=== PATIENT | female | born 1950 | race Hispanic/Latino ===

== ENCOUNTER → 2017-08-13 | Outpatient (CLI) | payer MEDICARE, BC ==
[~2017-08-13] MED LIST: BENZONATATE; IOPAMIDOL 370 MG/ML 200 ML INFUS..BTL INJ ONE; LIOTHYRONINE; SODIUM CHLORIDE 0.9% 50ML 50 ML ONE; SYNTHROID88 MCG PO
[2017-08-13 17:56] LABS: BLOOD UREA NITROGEN 21 mg/dL (7-26); BUN/CREATININE RATIO 27 (6-25); CREATININE, SERUM 0.77 mg/dL (0.57-1.11); EST GLOMERULAR FILTRATION RATE > 60 ML/MIN (60-)
--- NOTE | 2017-08-14 09:36 | Diagnostic Imaging Report ---
EXAMINATION: CT scan of the chest with contrast. TECHNIQUE: Spiral CT images of the chest were performed from the lung apices to the level of the adrenal glands after the intravenous administration of 100 cc of Isovue 370. Coronal and sagittal reformatted images were obtained. COMPARISON: CT chest 09/13/2008 CLINICAL HISTORY:Status post fall, pain on right side of chest and ribs DISCUSSION: ABSENCE OF INTRAVENOUS CONTRAST DECREASES SENSITIVITY FOR DETECTION OF FOCAL LESIONS AND VASCULAR PATHOLOGY. LINES/TUBES: None. LUNGS AND AIRWAYS: Mild bilateral lower lobe dependent atelectasis. No consolidation, masses or pulmonary nodules. Airways are clear, without underlying lesions. PLEURA: No pneumothorax or pleural effusions. HEART AND MEDIASTINUM: The visualized thyroid is unremarkable. Heart size is normal. No pericardial effusion. Aorta is nonaneurysmal. Main pulmonary artery is normal in caliber. LYMPH NODES: There is no mediastinal, hilar or axillary lymphadenopathy. ABDOMEN: Limited contrast-enhanced views of the upper abdomen show no abnormality within the visualized spleen or pancreas. Decreased attenuation of the hepatic parenchyma compared to the spleen, consistent with steatosis. No focal lesions. 1.7 x 1.5 x 1.9 cm simple cyst in the superior pole of the left kidney. The adrenal glands are unremarkable. BONES AND SOFT TISSUES: No acute, displaced fracture or dislocation. No lytic or blastic lesions. Soft tissues are grossly unremarkable. IMPRESSION: 1. No acute, displaced fracture or dislocation. 2. Mild bilateral lower lobe dependent atelectasis. Otherwise the lungs are grossly clear. 3. Hepatic steatosis. Signed by: Dr. Tyler Carbajal M.D. on 08/14/2017 9:32 AM
== END ==
LOC: CT 16:17
PROVIDERS: ATTEND Family Medicine
DX: R07.89 Other chest pain (principal)
CPT/HCPCS: 36415; 71260; 82565; 84520; Q9967

== ENCOUNTER 2017-10-05 13:33 | Inpatient (IN) | payer MEDICARE, BC ==
[~2017-10-05] VITALS: Ht 152.4 cm; Wt 58.5 kg
[~2017-10-05 13:33] MED LIST changes: -IOPAMIDOL 370 MG/ML 200 ML INFUS..BTL INJ ONE; -SODIUM CHLORIDE 0.9% 50ML 50 ML ONE
--- OUTSIDE RECORDS SUMMARY | 2017-10-05 13:36 | XMS REPORT ---
Author Author [facility] Address Unknown Phone Unavailable Care Team Providers Care Remote Ruby On Rails Developer Name Role Phone MEGHNA STAHL Unavailable Unavailable Problems This patient has no known problems. Allergies, Adverse Reactions, Alerts This patient has no known allergies or adverse reactions. Medications This patient has no known medications. Results Test Description Test Time Test Comments Text Results Atomic Results Result Comments CT CHEST W [place] [address] Patient Name: CHANTAL VASQUEZ MR #: [id number] : 1950 Age/Sex: 67/F Req # : [id number] Adm Physician: Ordered by: MEGHNA STAHL MD Report #: [id number] Location: CT Room/Bed: Procedure: [id number] CT/CT CHEST W Exam Date: 08/13/17 Exam Time: 1834 REPORT STATUS: Signed EXAMINATION: CT scan of the chest with contrast. TECHNIQUE: Spiral CT images of the chest were performed from the lung apices to the level of the adrenal glands after the intravenous administration of 100 cc of Isovue 370. Coronal and sagittal reformatted images were obtained. COMPARISON: CT chest 09/13/2008 CLINICAL HISTORY: Status post fall, pain on right side of chest and ribs DISCUSSION: ABSENCE OF INTRAVENOUS CONTRAST DECREASES SENSITIVITY FOR DETECTION OF FOCAL LESIONS AND VASCULAR PATHOLOGY. LINES/TUBES: None. LUNGS AND AIRWAYS : Mild bilateral lower lobe dependent atelectasis. No consolidation, masses or pulmonary nodules. Airways are clear, without underlying lesions. PLEURA: No pneumothorax or pleural effusions. HEART AND MEDIASTINUM: The visualized thyroid is unremarkable. Heart size is normal. No pericardial effusion. Aorta is nonaneurysmal. Main pulmonary artery is normal in caliber. LYMPH NODES: There is no mediastinal, hilar or axillary lymphadenopathy. ABDOMEN: Limited contrast-enhanced views of the upper abdomen show no abnormality within the visualized spleen or pancreas. Decreased attenuation of the hepatic parenchyma compared to the spleen, consistent with steatosis. No focal lesions. 1.7 x 1.5 x 1.9 cm simple cyst in the superior pole of the left kidney. The adrenal glands are unremarkable. BONES AND SOFT TISSUES : No acute, displaced fracture or dislocation. No lytic or blastic lesions. Soft tissues are grossly unremarkable. IMPRESSION: 1. No acute, displaced fracture or dislocation. 2. Mild bilateral lower lobe dependent atelectasis. Otherwise the lungs are grossly clear. 3. Hepatic steatosis. Signed by: Dr. Lynsey Carbajal M.D. on 08/14/2017 9:32 AM Dictated By: LYNSEY CARBAJAL MD 1 Transcribed By: DARRYN on 08/14/17931 COPY TO: MEGHNA STAHL MD
--- OUTSIDE RECORDS SUMMARY | 2017-10-05 13:36 | XMS REPORT | Clinical Summary ---
Author Author [facility] Address Unknown Phone Unavailable Care Team Providers Care Vibration Analyst Name Role Phone Asked, Pcp PCP Unavailable Allergies Active Allergy Reactions Severity Noted Date Comments Penicillins Hives 09/15/2016 Promethazine Other (See Comments) 09/15/2016 Feels electric shocks Sulfa (Sulfonamide Anaphylaxis High 09/15/2016 Antibiotics) Acetaminophen Other (See Comments) 09/15/2016 Feels electric schoks Current Medications Prescription Sig. Disp. Refills Start End Date Status Date SYNTHROID 88 mcg tablet 0 08/06/19 Active 17 Active Problems No known active problems Social History Tobacco Use Types Packs/Day Years Used Date Never Smoker Alcohol Use Drinks/Week oz/Week Comments No Sex Assigned at Date Recorded Not on file Last Filed Vital Signs Not on file Plan of Treatment Health Maintenance Due Date Last Done Comments COLONOSCOPY 2001 MAMMOGRAM 2001 SHINGRIX VACCINE (#1) 2001 ZOSTER VACCINE 2011 PNEUMOCOCCAL 01/09/2016 POLYSACCHARIDE VACCINE AGE 65 AND OVER PNEUMOCOCCAL-13 01/09/2016 INFLUENZA VACCINE 12/22/2017 Results Not on fileafter 10/04/2016 Insurance Payer Benefit Subscriber ID Type Phone Address Plan / Group BCBS BCBS xxxxxxxxxxxx PPO CHOICE PPO/BHAVANI MONTOYA PPO Work: [id number] [place] [id number] Home:
[2017-10-05 14:37] LABS: BASOPHILS % 0.6 % (0.0-1.0); EOSINOPHILS % 0.5 % (0.0-6.0); LYMPHOCYTES # (AUTO) 1.7 (1.0-3.2); LYMPHOCYTES % 26.4 % (18.0-39.1); MEAN CORPUSCULAR HEMOGLOBIN 29.3 pg (28-32); MEAN CORPUSCULAR HGB CONC 32.6 g/dL (31-35); MEAN CORPUSCULAR VOLUME 89.8 fL (81-99); MONOCYTES # (AUTO) 0.6 (0.2-0.8); MONOCYTES % 8.6 % (4.4-11.3); NEUTROPHILS # (AUTO) 4.1 (2.1-6.9); NEUTROPHILS % 63.6 % (38.7-80.0); PLATELET COUNT 311 x10e3/uL (140-360); RED BLOOD COUNT 5.12 x10e6/uL (3.6-5.1); RED CELL DISTRIBUTION WIDTH 12.4 % (11.7-14.4)
[2017-10-05 14:39] LABS: BILIRUBIN,URINE NEGATIVE (NEGATIVE); CLARITY,URINE CLEAR (CLEAR); COLOR,URINE YELLOW (YELLOW); EPITHELIAL CELLS,URINE FEW /LPF; KETONES,URINE NEGATIVE (NEGATIVE); LEUKOCYTE ESTERASE ,URINE NEGATIVE (NEGATIVE); NITRITE,URINE NEGATIVE (NEGATIVE); PROTEIN,URINE DIPSTICK NEGATIVE (NEGATIVE); RBC,URINE 0-5 /HPF (0-5); URINE UROBILINOGEN 0.2 mg/dL (0.2 - 1); WBC,URINE (MAN) 0-5 /HPF (0-5)
[2017-10-05 14:55] LABS: ALANINE AMINOTRANSFERASE 18 IU/L (0-55); ALBUMIN 4.6 g/dL (3.5-5.0); ALBUMIN/GLOBULIN RATIO 1.2 (0.8-2.0); ALKALINE PHOSPHATASE 118 IU/L (40-150); AMYLASE 240 U/L (25-125); ANION GAP 11.7 mmol/L (8-16); BLOOD UREA NITROGEN 15 mg/dL (7-26); BUN/CREATININE RATIO 20 (6-25); CALCIUM 10.5 mg/dL (8.4-10.2); CARBON DIOXIDE 28 mmol/L (22-29); CHLORIDE 104 mmol/L (98-107); CREATININE, SERUM 0.76 mg/dL (0.57-1.11); EST GLOMERULAR FILTRATION RATE > 60 ML/MIN (60-); GLUCOSE 90 mg/dL (74-118); LIPASE 500 U/L (8-78); POTASSIUM 3.7 mmol/L (3.5-5.1); SODIUM 140 mmol/L (136-145)
--- NOTE | 2017-10-05 16:39 | Diagnostic Imaging Report ---
PROCEDURE: CT ABDOMEN AND PELVIS WITH CONTRAST TECHNIQUE: The abdomen and pelvis were scanned utilizing a multidetector helical scanner from the diaphragm to the lesser trochanter after the IV administration of 100 cc of Isovue 370 and the oral administration of water. Coronal and sagittal multiplanar reformations were obtained. COMPARISON: Patients [facility], CT, CT ABDOMEN AND PELVIS WITHOUT CONTRAST, 11/21/2009, 14:33. INDICATIONS: RIGHT UPPER ABDOMEN PAIN FINDINGS: LOWER THORAX: Minimal bilateral dependent atelectasis. Lung bases are otherwise clear. HEPATOBILIARY: Mild decreased attenuation of the hepatic parenchyma compared to the spleen, consistent with mild fatty infiltration. No focal lesions. No biliary ductal dilation. Gallbladder is unremarkable. SPLEEN: No splenomegaly. PANCREAS: No focal masses or ductal dilatation. ADRENALS: No adrenal nodules. KIDNEYS/URETERS: No hydronephrosis, stones, or solid mass lesions. 1.6 x 1.6 x 1.8 cm fluid density mostly exophytic lesion in the superior pole of the left kidney (series 2, image 17, and sagittal image 83). PELVIC ORGANS/BLADDER: Bladder is unremarkable. Uterus is absent. No adnexal masses. Metallic clip in the right pelvis. PERITONEUM / RETROPERITONEUM: No free air or fluid. LYMPH NODES: No lymphadenopathy. VESSELS: Celiac trunk, superior and inferior mesenteric, and bilateral renal arteries are patent. Portal, superior mesenteric, and splenic veins are patent. Incidental note is made of a left retroaortic renal vein. GI TRACT: No bowel dilation or evidence of obstruction. Moderate retained stool in the ascending and proximal and mid transverse colon No pericolonic inflammatory changes. Stomach is unremarkable. BONES AND SOFT TISSUES: No aggressive lytic lesion. Calcified injection granulomas in bilateral gluteal regions. Soft tissues are otherwise unremarkable. IMPRESSION: 1. no acute abdominopelvic abnormalities. Specifically, no acute abnormal findings in the right upper quadrant. 2. Moderate retained stool in the ascending and proximal to mid transverse colon. 3. 1.8 cm left simple renal cyst. 4. Mild hepatic steatosis. No focal lesions. Tyler Carbajal M.D. Dictated by: Tyler Carbajal M.D. on 10/05/2017 at 16:41 Electronically approved by: Tyler Carbajal M.D. on 10/05/2017 at 16:41
[2017-10-05] MEDS ORDERED: ONDANSETRON HCL INJ 2 MG/ML VIAL IV STA (17:08)
[2017-10-05] MEDS ORDERED: MORPHINE SULFATE 2 MG/ML SYR IV STA (17:08)
[2017-10-05] MEDS ORDERED: MORPHINE SULFATE 2 MG/ML SYR IV PRN (17:15)
--- OUTSIDE RECORDS SUMMARY | 2017-10-05 17:22 | XMS REPORT | Clinical Summary ---
Author Author [facility] Address Unknown Phone Unavailable Care Team Providers Care Weigher Bulker Name Role Phone Asked, Pcp PCP Unavailable [...] PPO Work: [id number] [place] [id number] Home:
[2017-10-05] MEDS: ONDANSETRON HCL 4 MG ORAL DISINTEGRATING TAB PO PRN (18:02)
[2017-10-05] MEDS: KETOROLAC TROMETHAMINE 30 MG/ML VIAL IV PRN (18:02)
[2017-10-05] MEDS ORDERED: PANTOPRAZOLE INJ 40 MG in SODIUM CHLORIDE 0.9% 50ML 50 ML IV SCH (18:30)
--- NOTE | 2017-10-05 18:49 | History and Physical ---
CHIEF COMPLAINT: This 67-year-old comes in with abdominal pain. HISTORY OF PRESENTING ILLNESS: This is Ms. Jackie Ornelas with a history of chronic right upper quadrant pain after a fall with hypesthesias in the right upper quadrant, was in her usual state of health until 2 days prior to admission the patient started with acute anterior abdominal pain epigastric in nature, radiating to the back, described as 10 out of 10 intensity. Came into the emergency room, was found to have increased amylase and lipase and was admitted for pancreatitis. PAST MEDICAL HISTORY: History of thyroid disease status post thyroidectomy. Patient also with a history of appendectomy, hysterectomy. Otherwise complains of reflux esophagitis and also a history of nausea and vomiting for the last couple of years. Patient's medications include she takes Zofran orally and also levothyroxine 88 mcg. The patient also has a history of hypothyroidism. SOCIAL HISTORY: No ETOH. No IV drug abuse. REVIEW OF SYSTEMS: Negative for chest pain. No shortness of breath. Positive for nausea and vomiting. No diarrhea, no constipation, no rectal bleeding. No hematochezia, no hematemesis. No icterus, no blurry vision, no diplopia. Positive for paresthesias in the right upper extremity. PHYSICAL EXAMINATION VITAL SIGNS: Temperature is 97. Blood pressure is 159/87. Pulse is 79. Respiration of 18. HEENT: Normocephalic, atraumatic. Pupils react to light and accommodation. There is no icterus present. CARDIOVASCULAR: S1 and S2 normal. Regular rate and rhythm. ABDOMEN: Tender in the epigastrium. Positive for hyperesthesias in the right upper quadrant. EXTREMITIES: No clubbing, no cyanosis, no edema. The patient is in pain. IMAGING STUDIES: CT of the abdomen shows no acute abnormalities, moderate retained stool in the descending and proximal and mid transverse colon, a 1.8 simple renal cyst, mild hepatic steatosis with no focal abnormalities. LABORATORY VALUES: Sodium 140, potassium 3.7, chloride of 104. ALT, AST 15 and 18. Total protein 8.3. Amylase was 240 and lipase was 500. The urine was essentially negative. Ultrasound is pending. ASSESSMENT: Pancreatitis by lab values. A CT scan was negative. Will put the patient on n.p.o. right now and also increase the fluids. I would repeat her amylase and lipase tomorrow. A gastritis is definitely . We will also consult Dr. Obinna Davis. IV Protonix will be started. Further recommendations on clinical course. Will keep the patient n.p.o. and keep serial lipases, too. Will transfer to the floor and will keep n.p.o. Job#: [id number] EV
--- NOTE | 2017-10-05 18:51 | Diagnostic Imaging Report ---
PROCEDURE:US GALLBLADDER COMPARISON:[facility], CT, CT ABDOMEN/PELVIS W, 10/05/2017, 16:03. INDICATIONS:RUQ PAIN TECHNIQUE: Carmona-scale and color doppler transverse and longitudinal images of the right upper quadrant of the abdomen were obtained. FINDINGS: Liver: 12.6 cm in right mid-clavicular line. Mildly increased echogenicity. No masses. Main portal vein: 0.8 cm, hepatopetal flow Gallbladder: No stones, sludge, wall thickening, or pericholecystic fluid. Common Bile Duct: 0.4 cm Sonographic You's sign: Negative Right kidney: 10.2 cm. Normal echogenicity. No solid masses or hydronephrosis. Pancreas: Obscured by overlying bowel gas.. Inferior vena cava: Patent Aorta: Within normal limits Ascites: None in the right upper quadrant of the abdomen. CONCLUSION: 1. No sonographic evidence of cholelithiasis or cholecystitis. 2. Mild hepatic steatosis. No focal lesions. Tyler Carbajal M.D. Dictated by: Tyler Carbajal M.D. on 10/05/2017 at 18:53 Electronically approved by: Tyler Carbajal M.D. on 10/05/2017 at 18:53
[2017-10-05] MEDS ORDERED: PANTOPRAZOLE 40 MG 10ML VIAL ONE ×2 (19:36→21:59)
[2017-10-05] MEDS: SODIUM CHLORIDE 0.9% 1000ML 1,000 ML SCH (19:40)
[2017-10-05 21:29] VITALS: BP 112/64
[2017-10-05 21:32] VITALS: BP 112/64
[2017-10-05] MEDS ORDERED: SODIUM CHLORIDE 0.9% 50ML 100 ML ONE (22:01)
[2017-10-05] MEDS ORDERED: IOPAMIDOL 370 MG/ML 200 ML INFUS..BTL INJ ONE (22:37)
[2017-10-05] MEDS ORDERED: SODIUM CHLORIDE 0.9% 50ML 50 ML ONE (22:37)
[2017-10-05 23:15] VITALS: BP 106/67
[2017-10-06] MEDS: SODIUM CHLORIDE 0.9% 1000ML 1,000 ML SCH ×6 (01:45→20:18)
[2017-10-06] MEDS: LEVOTHYROXINE SODIUM 88 MCG TAB PO SCH (02:11)
[2017-10-06 03:58] VITALS: BP 103/59
[2017-10-06 06:22] LABS: BASOPHILS % 0.4 % (0.0-1.0); EOSINOPHILS % 0.9 % (0.0-6.0); HEMATOCRIT 36.2 % (34.2-44.1); LYMPHOCYTES # (AUTO) 1.5 (1.0-3.2); MEAN CORPUSCULAR HEMOGLOBIN 29.9 pg (28-32); MEAN CORPUSCULAR HGB CONC 33.1 g/dL (31-35); MEAN CORPUSCULAR VOLUME 90.3 fL (81-99); MONOCYTES # (AUTO) 0.6 (0.2-0.8); NEUTROPHILS # (AUTO) 2.5 (2.1-6.9); NEUTROPHILS % 53.5 % (38.7-80.0); PLATELET COUNT 227 x10e3/uL (140-360); RED BLOOD COUNT 4.01 x10e6/uL (3.6-5.1); RED CELL DISTRIBUTION WIDTH 12.4 % (11.7-14.4)
[2017-10-06 06:56] LABS: ALANINE AMINOTRANSFERASE 12 IU/L (0-55); ALBUMIN 3.2 g/dL (3.5-5.0); ALBUMIN/GLOBULIN RATIO 1.3 (0.8-2.0); ALKALINE PHOSPHATASE 82 IU/L (40-150); AMYLASE 224 U/L (25-125); ANION GAP 10.6 mmol/L (8-16); BILIRUBIN,DIRECT 0.2 mg/dL (0.0-0.5); BLOOD UREA NITROGEN 11 mg/dL (7-26); BUN/CREATININE RATIO 17 (6-25); CALCIUM 9.1 mg/dL (8.4-10.2); CARBON DIOXIDE 25 mmol/L (22-29); CHLORIDE 112 mmol/L (98-107); CREATININE, SERUM 0.66 mg/dL (0.57-1.11); EST GLOMERULAR FILTRATION RATE > 60 ML/MIN (60-); GLUCOSE 84 mg/dL (74-118); LIPASE 331 U/L (8-78); POTASSIUM 4.6 mmol/L (3.5-5.1); SODIUM 143 mmol/L (136-145)
[2017-10-06 07:19] LABS: FREE THYROXINE INDEX 2.3786 (1.4-3.8); THYROID STIMULATING HORMONE 0.001 uIU/mL (0.350-4.940)
[2017-10-06 08:19] VITALS: BP 101/53
[2017-10-06] MEDS: PANTOPRAZOLE 40 MG 10ML VIAL IV SCH ×2 (08:54→16:30)
[2017-10-06] MEDS: ONDANSETRON HCL 4 MG ORAL DISINTEGRATING TAB PO PRN ×2 (10:05→17:45)
[2017-10-06] MEDS: KETOROLAC TROMETHAMINE 30 MG/ML VIAL IV PRN (10:05)
[2017-10-06 12:32] VITALS: BP 120/58
[2017-10-06 16:42] VITALS: BP 124/69
[2017-10-06 20:59] VITALS: BP 137/71
[2017-10-07] VITALS (7 sets, daily range): BP systolic 100–138; BP diastolic 51–67
[2017-10-07] MEDS: SODIUM CHLORIDE 0.9% 1000ML 1,000 ML SCH ×8 (00:24→20:52)
[2017-10-07] MEDS: LEVOTHYROXINE SODIUM 88 MCG TAB PO SCH ×2 (06:30→06:55)
[2017-10-07 07:19] LABS: AMYLASE 79 U/L (25-125); LIPASE 57 U/L (8-78)
[2017-10-07] MEDS: PANTOPRAZOLE 40 MG 10ML VIAL IV SCH ×2 (08:14→16:08)
[2017-10-07] MEDS: KETOROLAC TROMETHAMINE 30 MG/ML VIAL IV PRN (09:45)
[2017-10-07] MEDS: ONDANSETRON HCL 4 MG ORAL DISINTEGRATING TAB PO PRN (09:45)
[2017-10-07] MEDS ORDERED: LIOTHYRONINE S25 MCG (14:41)
[2017-10-07] MEDS ORDERED: LEVOTHYROXINE75 MCG PO (14:54)
[2017-10-08] VITALS (8 sets, daily range): BP systolic 109–137; BP diastolic 57–64
[2017-10-08] MEDS: SODIUM CHLORIDE 0.9% 1000ML 1,000 ML SCH ×3 (01:15→07:50)
[2017-10-08] MEDS: KETOROLAC TROMETHAMINE 30 MG/ML VIAL IV PRN (04:04)
[2017-10-08] MEDS: LEVOTHYROXINE SODIUM 75 MCG TAB PO SCH (06:06)
[2017-10-08] MEDS: LIOTHYRONINE SODIUM 5 MCG TAB PO SCH (06:06)
[2017-10-08] MEDS: PANTOPRAZOLE 40 MG 10ML VIAL IV SCH ×2 (08:31→16:44)
[2017-10-08 10:07] LABS: ALANINE AMINOTRANSFERASE 20 IU/L (0-55); ALBUMIN 3.4 g/dL (3.5-5.0); ALBUMIN/GLOBULIN RATIO 1.3 (0.8-2.0); ALKALINE PHOSPHATASE 85 IU/L (40-150); ANION GAP 18.1 mmol/L (8-16); BLOOD UREA NITROGEN 11 mg/dL (7-26); BUN/CREATININE RATIO 16 (6-25); CALCIUM 9.1 mg/dL (8.4-10.2); CARBON DIOXIDE 15 mmol/L (22-29); CHLORIDE 110 mmol/L (98-107); CREATININE, SERUM 0.67 mg/dL (0.57-1.11); EST GLOMERULAR FILTRATION RATE > 60 ML/MIN (60-); LIPASE 20 U/L (8-78); POTASSIUM 4.1 mmol/L (3.5-5.1); SODIUM 139 mmol/L (136-145)
[2017-10-08 10:14] LABS: GLUCOSE 49 mg/dL (74-118)
[2017-10-08] MEDS: DEXTROSE 5%/0.45% SOD CHL 1,000 ML IV SCH (10:40)
[2017-10-08] MEDS ORDERED: DEXTROSE 50% SYRINGE 50 ML IV ONE (10:51)
[2017-10-08] MEDS: ONDANSETRON HCL 4 MG ORAL DISINTEGRATING TAB PO PRN (15:40)
[2017-10-09] VITALS (8 sets, daily range): BP systolic 114–125; BP diastolic 55–61
[2017-10-09] MEDS: DEXTROSE 5%/0.45% SOD CHL 1,000 ML IV SCH ×2 (00:48→15:56)
[2017-10-09] MEDS: LIOTHYRONINE SODIUM 5 MCG TAB PO SCH (06:38)
[2017-10-09] MEDS: LEVOTHYROXINE SODIUM 75 MCG TAB PO SCH (06:38)
[2017-10-09] MEDS: PANTOPRAZOLE 40 MG 10ML VIAL IV SCH ×2 (09:00→16:35)
[2017-10-09] MEDS: KETOROLAC TROMETHAMINE 30 MG/ML VIAL IV PRN (16:15)
[2017-10-10 00:59] VITALS: BP 124/59
[2017-10-10 04:00] VITALS: BP 135/58
[2017-10-10] MEDS: LEVOTHYROXINE SODIUM 75 MCG TAB PO SCH (05:30)
[2017-10-10] MEDS: DEXTROSE 5%/0.45% SOD CHL 1,000 ML IV SCH (05:30)
[2017-10-10] MEDS: LIOTHYRONINE SODIUM 5 MCG TAB PO SCH (05:30)
[2017-10-10 07:27] LABS: AMYLASE 45 U/L (25-125); ANION GAP 10.7 mmol/L (8-16); BLOOD UREA NITROGEN 8 mg/dL (7-26); BUN/CREATININE RATIO 12 (6-25); CALCIUM 9.7 mg/dL (8.4-10.2); CARBON DIOXIDE 26 mmol/L (22-29); CHLORIDE 108 mmol/L (98-107); CREATININE, SERUM 0.66 mg/dL (0.57-1.11); EST GLOMERULAR FILTRATION RATE > 60 ML/MIN (60-); GLUCOSE 104 mg/dL (74-118); LIPASE 27 U/L (8-78); POTASSIUM 3.7 mmol/L (3.5-5.1); SODIUM 141 mmol/L (136-145)
[2017-10-10 07:30] VITALS: BP 135/58
[2017-10-10 07:42] VITALS: BP 139/77
[2017-10-10] MEDS: PANTOPRAZOLE 40 MG 10ML VIAL IV SCH ×2 (09:30→17:00)
--- NOTE | 2017-10-10 13:37 | Diagnostic Imaging Report ---
Hepatobiliary Scan with Gallbladder Ejection Fraction Clinical information: 67F with pancreatitis and RUQ abdominal pain Technique: Following intravenous administration of 6 millicuries of Tc-99m mebrofenin, dynamic images of the abdomen in the anterior projection were obtained through 60 minutes. Sincalide (CCK analog) 1.5 micrograms was administered intravenously over 30 minutes with additional imaging for determination of gallbladder ejection fraction. Discussion: Perfusion of the liver is normal. Extraction of tracer by the liver parenchyma is normal. Tracer appears promptly within the biliary tract. The gallbladder begins to fill by 40 minutes post injection of tracer and fills adequately. Tracer is seen in the small bowel by 20 minutes. The gallbladder ejection fraction with sincalide is 5% (normal greater than 40%). Impression: 1. Filling of the gallbladder excludes acute cystic duct obstruction/acute cholecystitis. 2. The decreased gallbladder ejection fraction of 5% supports the clinical diagnosis of chronic cholecystitis/gallbladder dyskinesia. Signed by: Dr. Jenny Cook M.D. on 10/10/2017 1:34 PM
[2017-10-10] MEDS: ONDANSETRON HCL 4 MG ORAL DISINTEGRATING TAB PO PRN (17:01)
[2017-10-10 20:19] VITALS: BP 133/69
[2017-10-10 20:43] VITALS: BP 133/69
[2017-10-11 00:01] VITALS: BP 141/67
[2017-10-11] MEDS: DEXTROSE 5%/0.45% SOD CHL 1,000 ML IV SCH ×2 (01:52→10:00)
[2017-10-11 04:33] VITALS: BP 111/54
[2017-10-11] MEDS: LEVOTHYROXINE SODIUM 75 MCG TAB PO SCH (06:00)
[2017-10-11] MEDS: LIOTHYRONINE SODIUM 5 MCG TAB PO SCH (06:00)
[2017-10-11 08:00] VITALS: BP 124/57
[2017-10-11] MEDS: PANTOPRAZOLE 40 MG 10ML VIAL IV SCH ×2 (09:25→23:00)
[2017-10-11] MEDS ORDERED: BUPIVACAINE 0.25%/EPI 30ML SDV INJ ONE (11:09)
[2017-10-11] MEDS ORDERED: HYDROMORPHONE 2MG/ML INJ IV PRN (12:30)
[2017-10-11] MEDS ORDERED: HYDROMORPHONE 1MG/1ML INJ IV PRN ×2 (12:30)
[2017-10-11] MEDS ORDERED: HYDROCODONE/APAP 7.5MG-325MG 1 EA TAB PO PRN (12:30)
[2017-10-11] MEDS ORDERED: METOCLOPRAMIDE HCL 10 MG/2ML VIAL ONE (12:37)
[2017-10-11] MEDS ORDERED: ONDANSETRON HCL 4 MG ORAL DISINTEGRATING TAB ONE (12:37)
[2017-10-11] MEDS ORDERED: PROMETHAZINE HCL (IM) 25 MG/ML VIAL ONE (12:52)
--- NOTE | 2017-10-11 13:13 | Operative Report ---
DATE OF PROCEDURE: October 11, 2017 PREOPERATIVE DIAGNOSIS: 1. Biliary dyskinesia. 2. Acalculous chronic cholecystitis. POSTOPERATIVE DIAGNOSIS: 1. Biliary dyskinesia. 1. Acalculous chronic cholecystitis. PROCEDURE PERFORMED: Laparoscopic cholecystectomy. ANESTHESIA: General endotracheal. ESTIMATED BLOOD LOSS: Minimal. DRAINS: None. COMPLICATIONS: None. INDICATIONS AND FINDINGS: A 67-year-old female admitted for right upper quadrant pain for several months' duration, associated with fatty food intolerance, radiation to the back. The patient several months ago had fallen, hitting her right side of the abdomen. She then starting developing pain. She attributed the pain to the fall. However, she persisted with the pain long after the fall. She was then admitted to the hospital where a workup revealed an ejection fraction of 5% by HIDA scan, no ductal dilatation, normal ultrasound of the gallbladder, normal liver chemistries. Preoperatively the patient was cancelled and advised that there were no guarantees that could be made regarding the results of surgery but, with no obvious source of the pain, that cholecystectomy was a very viable option. She was evaluated by GI preoperatively, also. The findings were adhesions of the gallbladder to the omentum and the stomach. There was no ductal dilatation. The gallbladder wall appeared to be slightly thickened, all consistent with chronic acalculous cholecystitis. DESCRIPTION OF PROCEDURE: With the patient lying on the operative table in the supine position after administration of general anesthesia, she was prepped and draped for laparoscopic cholecystectomy. The procedure was begun by establishing a pneumoperitoneum in the right upper quadrant midclavicular line because of previous pelvic surgery. Pneumoperitoneum was insufflated to 15 mm of pressure and then the 5 mm trocar placed in that location, the camera introduced. Under direct vision we placed a 10-11 trocar superior to the umbilicus, and then a right anterior axillary line trocar was placed in the subxiphoid region and finally a right anterior axillary line 5 mm trocar was also placed. The gallbladder was then retracted cephalad and laterally. Adhesions of the omentum to the gallbladder were lysed, including an adhesion with a fine band to the stomach and part of the omentum, until we exposed the hepatoduodenal ligament and as well the cystic duct. The gallbladder dissection was begun high on the neck of the gallbladder until we exposed the junction, which was then carefully preserved as we transected the cystic duct distally 3 times, once proximally between titanium clips. The cystic artery was transected between titanium clips, also. Then the gallbladder was taken down from the gallbladder bed fossa using electrodissection with the scissors. The gallbladder was then detached, placed an endobag and removed through the umbilical port. After we did that, we inspected the operative field. We cauterized some oozing from the fossa, placed a Surgicel and then released the pneumoperitoneum under direct vision with the camera. There was no bile leak, no bleeding, no apparent bowel injury. We closed the wounds using 0 Vicryl for the umbilical fascia, 3-0 Vicryl for the subcutaneous tissue in that location as well as the subxiphoid port, and the skin of all the ports was closed using ephraim. Marcaine 0.25% with epinephrine was given as local block at the end of the case. After we did that, the patient tolerated the procedure well, was taken to the recovery room in stable condition, the family informed of the intraoperative findings. Job#: [id number] EV
[2017-10-11] MEDS ORDERED: MIDAZOLAM HCL 2 MG/2 ML VIAL ONE (14:48)
[2017-10-11 14:55] VITALS: BP 154/75
[2017-10-11 16:00] VITALS: BP 144/78
[2017-10-11] MEDS ORDERED: ONDANSETRON HCL INJ 2 MG/ML VIAL ONE (17:40)
[2017-10-11] MEDS ORDERED: KETOROLAC TROMETHAMINE 30 MG/ML VIAL ONE (17:40)
[2017-10-11] MEDS ORDERED: NEOSTIGMINE 5 MG/5ML SYR ONE (17:40)
[2017-10-11] MEDS ORDERED: DEXAMETHASONE SOD PHOS INJ 4 MG/ML VIAL ONE (17:40)
[2017-10-11] MEDS ORDERED: SEVOFLURANE INHAL SOLN 250 ML PEN BTL ONE (17:40)
[2017-10-11] MEDS ORDERED: ACETAMINOPHEN 1000 MG/100 ML IV ONE (17:40)
[2017-10-11] MEDS ORDERED: CEFAZOLIN SOD 1 GM VIAL ONE (17:40)
[2017-10-11] MEDS ORDERED: PROPOFOL IV EMULSION 10 MG/ML 20 ML VIAL ONE (17:40)
[2017-10-11] MEDS ORDERED: ATROPINE SULFATE 1 MG/ML VIAL ONE (17:40)
[2017-10-11] MEDS ORDERED: LIDOCAINE HCL 2% LOCAL INJ 5 ML SDV VIAL INJ ONE (17:40)
[2017-10-11] MEDS ORDERED: LABETALOL HCL 5 MG/ML 20ML VIAL ONE (17:40)
[2017-10-11] MEDS ORDERED: ROCURONIUM BROMIDE 10 MG/ML 5ML VIAL ONE (17:40)
[2017-10-11] MEDS ORDERED: TRAMADOL HCL 50 MG TAB PO PRN (18:15)
[2017-10-11] MEDS: KETOROLAC TROMETHAMINE 30 MG/ML VIAL IV PRN (18:44)
[2017-10-11 20:00] VITALS: BP 123/64
[2017-10-12] VITALS: BP 115/60
[2017-10-12] MEDS: KETOROLAC TROMETHAMINE 30 MG/ML VIAL IV PRN ×2 (02:25→19:42)
[2017-10-12] MEDS: DEXTROSE 5%/0.45% SOD CHL 1,000 ML IV SCH ×2 (03:02→17:14)
[2017-10-12 04:00] VITALS: BP 97/51
[2017-10-12] MEDS: LIOTHYRONINE SODIUM 5 MCG TAB PO SCH (06:03)
[2017-10-12] MEDS: LEVOTHYROXINE SODIUM 75 MCG TAB PO SCH (06:03)
[2017-10-12 07:06] LABS: BASOPHILS % 0.1 % (0.0-1.0); EOSINOPHILS % 0.1 % (0.0-6.0); HEMATOCRIT 36.4 % (34.2-44.1); HEMOGLOBIN 12.2 g/dL (12.0-16.0); LYMPHOCYTES # (AUTO) 1.6 (1.0-3.2); LYMPHOCYTES % 16.9 % (18.0-39.1); MEAN CORPUSCULAR HEMOGLOBIN 29.8 pg (28-32); MEAN CORPUSCULAR HGB CONC 33.5 g/dL (31-35); MEAN CORPUSCULAR VOLUME 88.8 fL (81-99); MONOCYTES # (AUTO) 0.9 (0.2-0.8); MONOCYTES % 9.3 % (4.4-11.3); NEUTROPHILS % 73.2 % (38.7-80.0); PLATELET COUNT 222 x10e3/uL (140-360); RED CELL DISTRIBUTION WIDTH 12.5 % (11.7-14.4)
[2017-10-12 07:26] LABS: BLOOD UREA NITROGEN 10 mg/dL (7-26); BUN/CREATININE RATIO 14 (6-25); CALCIUM 9.6 mg/dL (8.4-10.2); CARBON DIOXIDE 27 mmol/L (22-29); CHLORIDE 106 mmol/L (98-107); CREATININE, SERUM 0.73 mg/dL (0.57-1.11); EST GLOMERULAR FILTRATION RATE > 60 ML/MIN (60-); GLUCOSE 103 mg/dL (74-118); SODIUM 140 mmol/L (136-145)
[2017-10-12] MEDS: PANTOPRAZOLE 40 MG 10ML VIAL IV SCH ×2 (09:02→22:00)
[2017-10-12 11:25] VITALS: BP 97/51
[2017-10-12 16:17] VITALS: BP 112/61
[2017-10-12 20:00] VITALS: BP 128/65
[2017-10-13] VITALS: BP_SYST 100; BP_DIAS 51; BP_DIAS 57
[2017-10-13 04:00] VITALS: BP 111/57
[2017-10-13] MEDS: DEXTROSE 5%/0.45% SOD CHL 1,000 ML IV SCH (04:54)
[2017-10-13] MEDS: LIOTHYRONINE SODIUM 5 MCG TAB PO SCH (05:34)
[2017-10-13] MEDS: LEVOTHYROXINE SODIUM 75 MCG TAB PO SCH (05:34)
[2017-10-13 07:08] VITALS: BP 125/61
[2017-10-13] MEDS: PANTOPRAZOLE 40 MG 10ML VIAL IV SCH (08:47)
[2017-10-13 09:47] VITALS: BP 125/61
[2017-10-13 12:22] VITALS: BP 115/58
[2017-10-13] MEDS ORDERED: BISACODYL 10 MG SUPP PR NR (12:45)
[2017-10-13] MEDS ORDERED: KETOROLAC TROME10 MG PO (13:14)
[2017-10-13] MEDS: KETOROLAC TROMETHAMINE 30 MG/ML VIAL IV PRN (15:45)
[2017-10-13 16:10] VITALS: BP 137/60
[2017-10-13] MEDS ORDERED: PANTOPRAZOLE SOD 40 MG TABEC PO SCH (16:30)
[2017-10-13] MEDS: ONDANSETRON HCL 4 MG ORAL DISINTEGRATING TAB PO PRN (16:32)
== END 2017-10-13 16:37 | disposition home or self-care (01) | DRG 419 ==
LOC: ER 13:33 → ERHOLD 17:20 → IMCU 20:39 → OBSVTOIN 10-07 14:45 → MED/SURG 10-07 17:43
PROVIDERS: ADMIT Family Medicine; ATTEND Family Medicine
PROC: 0FT44ZZ Resection of Gallbladder, Percutaneous Endoscopic Approach (ICD-10-PCS; principal; 2017-10-11 10:00)
DX: K85.90 Acute pancreatitis without necrosis or infection, unspecified (principal); K81.1 Chronic cholecystitis; E03.9 Hypothyroidism, unspecified; K82.8 Other specified diseases of gallbladder; K21.9 Gastro-esophageal reflux disease without esophagitis; Z28.21 Immunization not carried out because of patient refusal
CPT/HCPCS: 36415; 74177; 76705; 78227; 80048; 80053; 81001; 82150; 82248; 82948; 83690; 84436; 84443; 84478; 84479; 85025; 88304; 96361; 99284; A9537; C1766; G0378; J0461; J0690; J1100; J1885; J2001; J2250; J2405; J2550; J2765; J7030; J7799; Q9967

== ENCOUNTER → 2017-11-13 | Day surgery (SDC) | payer MEDICARE, BC ==
[~2017-11-13] MED LIST changes: +DEXAMETHASONE SOD PHOS INJ 4 MG/ML VIAL ONE; +FENTANYL CITRATE/PF 100MCG/2 ML INJ ONE; +KETOROLAC TROME10 MG PO; +LEVOTHYROXINE75 MCG PO; +LIDOCAINE HCL 2% LOCAL INJ 5 ML SDV VIAL INJ ONE; +LIOTHYRONINE S25 MCG; +MIDAZOLAM HCL 2 MG/2 ML VIAL ONE; +ONDANSETRON HCL INJ 2 MG/ML VIAL ONE; +PROPOFOL IV EMULSION 10 MG/ML 50 ML VIAL ONE
--- NOTE | 2017-11-13 09:57 | Operative Report ---
DATE OF PROCEDURE: November 13, 2017 PROCEDURE PERFORMED: Esophagogastroduodenoscopy with biopsies. REFERRING PHYSICIAN: Dr. Meghna Stahl INDICATIONS FOR EGD: Upper abdominal pain. MEDICATION: Patient was done under MAC. Please see anesthesiologist note. PROCEDURE IN DETAIL: With the patient in left lateral decubitus position, flexible fiberoptic Olympus gastroscope was introduced into the esophagus under direct visualization without any difficulty. There was some patchy erythema noted in distal esophagus. A focal nodularity was noted at the GE junction that was biopsied. The scope was then advanced with ease into her stomach traversing a small sliding hiatal hernia. An approximately 8-mm submucosal nodule was noted in the upper body along the posterior wall and that was biopsied. The mucosa overlying the antrum and the body revealed some patchy erythema and low-grade edema, and biopsies were obtained and sent to stain for H. pylori. Pylorus appeared to be of normal contour and shape. It was intubated with ease and the scope was advanced all the way to the second portion of the duodenum. The scope was then withdrawn slowly. Mucosa overlying the proximal second portion revealed some patchy intense erythema, and the duodenal bulb was grossly within normal limits. The scope was then withdrawn back into the stomach and retroflexed, and mucosa overlying the fundus and the cardia appeared to be within normal limits. The scope was then straightened out. The stomach was decompressed. The scope was subsequently withdrawn. Patient tolerated the procedure well. IMPRESSION: 1. Distal esophagitis, mild. 2. Focal nodularity, gastroesophageal junction, biopsied. 3. Small sliding hiatal hernia. 4. Gastritis, biopsied. Biopsy sent to stain for Helicobacter pylori. 5. Approximately 8-mm submucosal nodule, upper body, posterior wall, biopsied. 6. Duodenitis. PLAN: Follow up histology. Initiate Protonix 40 mg 1 p.o. q.a.m. a.c. Job#: [id number] cc:MEGHNA STAHL MD
== END | disposition home or self-care (01) ==
LOC: ENDO 06:40
PROVIDERS: ATTEND Internal Medicine Gastroenterology
DX: K29.50 Unspecified chronic gastritis without bleeding (principal); K22.10 Ulcer of esophagus without bleeding; K31.89 Other diseases of stomach and duodenum; K29.80 Duodenitis without bleeding; K21.9 Gastro-esophageal reflux disease without esophagitis; K44.9 Diaphragmatic hernia without obstruction or gangrene; E89.0 Postprocedural hypothyroidism; R03.0 Elevated blood-pressure reading, without diagnosis of hypertension; Z88.0 Allergy status to penicillin; Z88.2 Allergy status to sulfonamides; Z88.8 Allergy status to other drugs, medicaments and biological substances; Z01.810 Encounter for preprocedural cardiovascular examination
CPT/HCPCS: 43239; 88305; 88312; 93005; J1100; J2001; J2250; J2405

== ENCOUNTER 2024-08-13 11:45 | Inpatient (IN) | payer BC, MEDICARE ==
[2024-08-13] VITALS (8 sets, daily range): BP systolic 107–118; BP diastolic 66–70; PULSE 58–66; RESP 16–18; TEMP 97.2–97.8; O2SAT 99
[~2024-08-13] VITALS: Ht 152.4 cm; Wt 61.7 kg
[~2024-08-13 11:45] MED LIST changes: -DEXAMETHASONE SOD PHOS INJ 4 MG/ML VIAL ONE; -FENTANYL CITRATE/PF 100MCG/2 ML INJ ONE; -LIDOCAINE HCL 2% LOCAL INJ 5 ML SDV VIAL INJ ONE; -MIDAZOLAM HCL 2 MG/2 ML VIAL ONE; -ONDANSETRON HCL INJ 2 MG/ML VIAL ONE; -PROPOFOL IV EMULSION 10 MG/ML 50 ML VIAL ONE
[2024-08-13 12:39] LABS: BASOPHILS % 0.6 % (0.0-1.0); EOSINOPHILS # (AUTO) 0.2 (0.0-0.4); EOSINOPHILS % 2.6 % (0.0-6.0); HEMATOCRIT 42.5 % (34.2-44.1); HEMOGLOBIN 14.2 g/dL (12.0-16.0); LYMPHOCYTES # (AUTO) 1.9 (1.0-3.2); LYMPHOCYTES % 28.5 % (18.0-39.1); MEAN CORPUSCULAR HEMOGLOBIN 29.6 pg (28-32); MEAN CORPUSCULAR HGB CONC 33.4 g/dL (31-35); MEAN CORPUSCULAR VOLUME 88.7 fL (81-99); MONOCYTES # (AUTO) 0.6 (0.2-0.8); MONOCYTES % 9.1 % (4.4-11.3); NEUTROPHILS # (AUTO) 3.8 (2.1-6.9); PLATELET COUNT 394 x10e3/uL (140-360); RED BLOOD COUNT 4.79 x10e6/uL (3.6-5.1); RED CELL DISTRIBUTION WIDTH 12.3 % (11.7-14.4)
[2024-08-13 13:01] LABS: ANION GAP 18.4 mmol/L (8-16); CALCIUM 9.2 mg/dL (8.4-10.2); CREATININE, SERUM 3.05 mg/dL (0.57-1.11)
[2024-08-13 13:02] LABS: POTASSIUM 3.4 mmol/L (3.5-5.1)
[2024-08-13] MEDS: LACTATED RINGER'S 1,000 ML INJ ONE (14:18)
[2024-08-13] MEDS: SODIUM CHLORIDE 0.9% 1000ML 1,000 ML IV SCH (14:18)
[2024-08-14] VITALS (11 sets, daily range): BP systolic 108–139; BP diastolic 62–92; PULSE 57–71; RESP 15–19; TEMP 97.2–98.3; O2SAT 97–100
[2024-08-14 05:34] LABS: BASOPHILS # (AUTO) 0.1 (0.0-0.1); BASOPHILS % 0.9 % (0.0-1.0); EOSINOPHILS # (AUTO) 0.2 (0.0-0.4); EOSINOPHILS % 3.4 % (0.0-6.0); HEMATOCRIT 39.2 % (34.2-44.1); HEMOGLOBIN 12.8 g/dL (12.0-16.0); LYMPHOCYTES # (AUTO) 1.8 (1.0-3.2); LYMPHOCYTES % 26.1 % (18.0-39.1); MEAN CORPUSCULAR HEMOGLOBIN 29.2 pg (28-32); MEAN CORPUSCULAR HGB CONC 32.7 g/dL (31-35); MEAN CORPUSCULAR VOLUME 89.5 fL (81-99); MONOCYTES # (AUTO) 0.7 (0.2-0.8); MONOCYTES % 9.7 % (4.4-11.3); NEUTROPHILS # (AUTO) 4.2 (2.1-6.9); NEUTROPHILS % 59.6 % (38.7-80.0); PLATELET COUNT 286 x10e3/uL (140-360); RED BLOOD COUNT 4.38 x10e6/uL (3.6-5.1); RED CELL DISTRIBUTION WIDTH 12.6 % (11.7-14.4); WHITE BLOOD COUNT 7.01 x10e3/uL (4.8-10.8)
[2024-08-14 06:05] LABS: ANION GAP 17.4 mmol/L (8-16); CALCIUM 8.4 mg/dL (8.4-10.2); CREATININE, SERUM 2.78 mg/dL (0.57-1.11)
[2024-08-14 06:13] LABS: POTASSIUM 3.4 mmol/L (3.5-5.1)
[2024-08-14] MEDS: LEVOTHYROXINE SODIUM 75 MCG TAB PO SCH (08:23)
[2024-08-14] MEDS: DEXTROSE 5%/0.45% SOD CHL 1,000 ML IV SCH (11:54)
[2024-08-14] MEDS: POTASSIUM CHLORIDE 20MEQ/100ML 100 ML IV SCH (11:54)
[2024-08-14] MEDS: SODIUM BICARBONATE 650 MG TAB PO SCH (11:54)
[2024-08-14 19:34] LABS: BILIRUBIN,URINE NEGATIVE (NEGATIVE); CLARITY,URINE CLEAR (CLEAR); COLOR,URINE COLORLESS (YELLOW); GLUCOSE, URINE NEGATIVE (NEGATIVE); KETONES,URINE NEGATIVE (NEGATIVE); LEUKOCYTE ESTERASE ,URINE NEGATIVE (NEGATIVE); NITRITE,URINE NEGATIVE (NEGATIVE); PH,URINE 7 (5 - 7); PROTEIN,URINE DIPSTICK NEGATIVE (NEGATIVE); RBC,URINE 0-5 /HPF (0-5); URINE UROBILINOGEN 0.2 mg/dL (0.2 - 1); WBC,URINE (MAN) 0-5 /HPF (0-5)
[2024-08-14 19:53] LABS: CREATININE,URINE RANDOM 13.28 mg/dL (47-110); TOTAL PROTEIN, URINE 7.2 mg/dL (1-14)
[2024-08-15] VITALS (7 sets, daily range): BP systolic 123–137; BP diastolic 79–90; PULSE 58–77; RESP 15–18; TEMP 97.6–98.6; O2SAT 98–100
[2024-08-15 06:09] LABS: ALBUMIN 3.4 g/dL (3.5-5.0); ALBUMIN/GLOBULIN RATIO 1.2 (0.8-2.0); ANION GAP 15.7 mmol/L (8-16); BILIRUBIN,TOTAL 0.3 mg/dL (0.2-1.2); CALCIUM 8.5 mg/dL (8.4-10.2); CREATININE, SERUM 2.66 mg/dL (0.57-1.11); POTASSIUM 3.7 mmol/L (3.5-5.1); TOTAL PROTEIN 6.2 g/dL (6.5-8.1)
[2024-08-15] MEDS: SODIUM BICARBONATE 8.4% SYRING 150 ML in DEXTROSE 5% 1,000 ML IV SCH (13:06)
[2024-08-15 13:20] LABS: INR 0.96; PROTHROMBIN TIME 13.4 seconds (11.9-14.5)
[2024-08-16] VITALS (8 sets, daily range): BP systolic 103–150; BP diastolic 68–83; PULSE 64–84; RESP 16–18; TEMP 96.7–98; O2SAT 97–100
[2024-08-16 06:40] LABS: ALBUMIN 3.5 g/dL (3.5-5.0); ALBUMIN/GLOBULIN RATIO 1.3 (0.8-2.0); ANION GAP 16.3 mmol/L (8-16); BILIRUBIN,TOTAL 0.4 mg/dL (0.2-1.2); CALCIUM 8.7 mg/dL (8.4-10.2); CREATININE, SERUM 2.67 mg/dL (0.57-1.11); POTASSIUM 3.3 mmol/L (3.5-5.1); TOTAL PROTEIN 6.2 g/dL (6.5-8.1)
[2024-08-16] MEDS ORDERED: LIDOCAINE HCL 1% 30ML-PF VIAL ONE (09:04)
[2024-08-16] MEDS: POTASSIUM CHLORIDE IN D5W 1,000 ML IV ONE (10:45)
[2024-08-16] MEDS ORDERED: ONDANSETRON HCL INJ 2MG/ML 2ML 2 MG/ML VIAL IV PRN (14:30)
[2024-08-17 03:36] VITALS: BP 98/69; PULSE 69; RESP 18; TEMP 97.6; O2SAT 95
[2024-08-17 05:58] LABS: BASOPHILS # (AUTO) 0.1 (0.0-0.1); BASOPHILS % 0.7 % (0.0-1.0); EOSINOPHILS # (AUTO) 0.2 (0.0-0.4); EOSINOPHILS % 2.8 % (0.0-6.0); HEMATOCRIT 36.9 % (34.2-44.1); HEMOGLOBIN 12.4 g/dL (12.0-16.0); LYMPHOCYTES # (AUTO) 1.7 (1.0-3.2); LYMPHOCYTES % 24.3 % (18.0-39.1); MEAN CORPUSCULAR HEMOGLOBIN 29.9 pg (28-32); MEAN CORPUSCULAR HGB CONC 33.6 g/dL (31-35); MEAN CORPUSCULAR VOLUME 88.9 fL (81-99); MONOCYTES # (AUTO) 0.7 (0.2-0.8); MONOCYTES % 10.3 % (4.4-11.3); NEUTROPHILS # (AUTO) 4.4 (2.1-6.9); NEUTROPHILS % 61.6 % (38.7-80.0); PLATELET COUNT 268 x10e3/uL (140-360); RED BLOOD COUNT 4.15 x10e6/uL (3.6-5.1); RED CELL DISTRIBUTION WIDTH 12.2 % (11.7-14.4); WHITE BLOOD COUNT 7.16 x10e3/uL (4.8-10.8)
[2024-08-17 06:26] LABS: ALBUMIN 3.6 g/dL (3.5-5.0); ALBUMIN/GLOBULIN RATIO 1.2 (0.8-2.0); ANION GAP 16.5 mmol/L (8-16); BILIRUBIN,TOTAL 0.7 mg/dL (0.2-1.2); CALCIUM 8.9 mg/dL (8.4-10.2); CREATININE, SERUM 2.86 mg/dL (0.57-1.11); POTASSIUM 3.5 mmol/L (3.5-5.1); TOTAL PROTEIN 6.5 g/dL (6.5-8.1)
[2024-08-17 07:44] VITALS: BP 99/59; PULSE 61; RESP 16; TEMP 98.1; O2SAT 99
[2024-08-17 08:12] LABS: COMPLEMENT C3 128 mg/dL (82-167)
[2024-08-17 09:24] LABS: RHEUMATOID FACTOR <10.0 IU/mL (<14.0)
[2024-08-17 10:10] VITALS: BP 99/59; PULSE 61; RESP 16; TEMP 98.1; O2SAT 99
[2024-08-17 11:29] VITALS: BP 105/68; PULSE 66; RESP 17; TEMP 98; O2SAT 99
[2024-08-17 15:48] VITALS: BP 108/72; PULSE 73; RESP 16; TEMP 97.9; O2SAT 97
[2024-08-17 20:09] LABS: MYELOPEROXIDASE AB (MPO) <0.2 units (0.0-0.9)
[2024-08-17 20:25] LABS: PROTEINASE-3 ANTIBODY <0.2 units (0.0-0.9)
[2024-08-18 14:11] LABS: cANCA TITER <1:20 titer (Neg:<1:20)
[2024-08-18 15:11] LABS: ATYPICAL pANCA TITER <1:20 titer (Neg:<1:20); pANCA TITER <1:20 titer (Neg:<1:20)
[2024-08-18 20:09] LABS: ANTI SM/RNP 0.3 AI (0.0-0.9); COMPLEMENT C4 28 mg/dL (12-38); SCLERODERMA 70 ANTIBODY <0.2 AI (0.0-0.9); SMITH ABS <0.2 AI (0.0-0.9)
[2024-08-18 20:28] LABS: ANTI DNA DS ANTIBODY <1 IU/mL (0-9); ANTI-MITOCHONDRIAL AB SCREEN <20.0 Units (0.0-20.0); ANTI-SM 5 Units (0-19); ANTI-STRIATED MUSCLE AB Negative (Neg:<1:100); GASTRIC PARIETAL CELL ANTIBODY 2.8 Units (0.0-20.0); THYROID PEROXIDASE ANTIBODY 14 IU/mL (0-34)
== END 2024-08-17 16:28 | disposition home or self-care (01) | DRG 683 ==
LOC: ER 12:05 → ERHOLD 13:39 → MED/SURG2 14:52
PROVIDERS: ADMIT Family Medicine; ATTEND Family Medicine
PROC: 0TB13ZX Excision of Left Kidney, Percutaneous Approach, Diagnostic (ICD-10-PCS; principal; 2024-08-16)
DX: N17.0 Acute kidney failure with tubular necrosis (principal); E87.20 Acidosis, unspecified; N25.89 Other disorders resulting from impaired renal tubular function; I12.9 Hypertensive chronic kidney disease with stage 1 through stage 4 chronic kidney disease, or unspecified chronic kidney disease; E86.0 Dehydration; N18.4 Chronic kidney disease, stage 4 (severe); E87.6 Hypokalemia; E89.0 Postprocedural hypothyroidism; R53.81 Other malaise; Z79.890 Hormone replacement therapy; Z90.710 Acquired absence of both cervix and uterus; Z90.49 Acquired absence of other specified parts of digestive tract; Z88.0 Allergy status to penicillin; Z88.2 Allergy status to sulfonamides; Z88.8 Allergy status to other drugs, medicaments and biological substances
CPT/HCPCS: 36415; 50200; 71046; 74470; 76770; 76942; 80048; 80053; 81001; 82570; 83516; 84156; 84550; 85025; 85610; 86021; 86039; 86160; 86225; 86235; 86255; 86256; 86376; 86431; 94799; 99284; J2003; J3480; J7030; J7070

== ENCOUNTER 2024-11-30 15:01 | Inpatient (IN) | payer MEDICARE ==
[~2024-11-30] VITALS: Ht 152.4 cm; Wt 61.7 kg
[2024-11-30] MEDS ORDERED: SODIUM CHLORIDE 0.9% 1000ML 1,000 ML IV STA (16:31)
[2024-11-30 16:50] LABS: BASOPHILS % 0.0 % (0.0-1.0); EOSINOPHILS % 0.0 % (0.0-6.0); LYMPHOCYTES % 4.3 % (18.0-39.1); MONOCYTES % 0.8 % (4.4-11.3); NEUTROPHILS % 94.0 % (38.7-80.0); RED CELL DISTRIBUTION WIDTH 14.7 % (11.7-14.4)
[2024-11-30 17:03] LABS: INR 1.05
[2024-11-30 17:10] LABS: EST GLOMERULAR FILTRATION RATE 15.0 ML/MIN (>=60)
[2024-11-30] MEDS ORDERED: SODIUM CHLORIDE 0.9% 250ML 250 ML ONE (20:17)
[2024-11-30 21:00] VITALS: PULSE 78; RESP 18; TEMP 98
[2024-11-30 22:40] VITALS: BP 126/78; PULSE 78; RESP 18; TEMP 98; O2SAT 99
[2024-11-30 22:46] VITALS: BP 126/78; PULSE 78; RESP 18; TEMP 98; O2SAT 99
[2024-11-30] MEDS ORDERED: SODIUM BICARBO650 MG PO (23:34)
[2024-11-30] MEDS ORDERED: PREDNISONE20 MG PO (23:34)
[2024-11-30] MEDS ORDERED: POTASSIUM CHLO20 ME1 PO (23:34)
[2024-11-30] MEDS: FUROSEMIDE INJ 10 MG/ML 2 ML VIAL IV PRN (23:36)
[2024-12-01] VITALS (7 sets, daily range): BP systolic 103–150; BP diastolic 72–98; PULSE 65–101; RESP 16–20; TEMP 97.6–98.3; O2SAT 98–100
[2024-12-01 00:03] LABS: % IRON SATURATION 28 % (15-50)
[2024-12-01 06:30] LABS: BASOPHILS % 0.1 % (0.0-1.0); EOSINOPHILS % 0.0 % (0.0-6.0); LYMPHOCYTES % 17.0 % (18.0-39.1); MONOCYTES % 8.9 % (4.4-11.3); NEUTROPHILS % 73.1 % (38.7-80.0); RED CELL DISTRIBUTION WIDTH 14.5 % (11.7-14.4)
[2024-12-01 07:07] LABS: EST GLOMERULAR FILTRATION RATE 17.0 ML/MIN (>=60)
[2024-12-01] MEDS: SODIUM CHLORIDE 0.9% 250ML 250 ML ONE (08:09)
[2024-12-01] MEDS: SODIUM CHLORIDE 0.9% 250ML 250 ML IV ONE (08:09)
[2024-12-01] MEDS ORDERED: FENTANYL CITRATE/PF 100MCG/2 ML INJ ONE (14:28)
[2024-12-01] MEDS ORDERED: LIDOCAINE HCL 2% LOCAL INJ 5 ML SDV VIAL INJ ONE (14:28)
[2024-12-01] MEDS ORDERED: PROPOFOL IV EMULSION 10 MG/ML 20 ML VIAL ONE ×2 (14:28→15:01)
[2024-12-01] MEDS ORDERED: GLYCOPYRROLATE INJ 0.2 MG/ML VIAL ONE (14:42)
[2024-12-01] MEDS ORDERED: EPHEDRINE SULFATE INJ 50 MG/ML VIAL ONE (15:09)
[2024-12-01] MEDS ORDERED: MYCOPHENOLATE250 MG PO (17:00)
[2024-12-01] MEDS ORDERED: SODIUM BICARBONATE 650 MG TAB PO SCH (17:00)
[2024-12-01] MEDS: PREDNISONE 20 MG TAB PO SCH (17:00)
[2024-12-01] MEDS: SUCRALFATE 1 GM/10 ML SUSP PO SCH (17:03)
[2024-12-01] MEDS: SODIUM BICARBONATE 650 MG TAB PO SCH (17:03)
[2024-12-01] MEDS: CYANOCOBALAMIN INJ 1,000 MCG/ML VIAL IM ONE (17:04)
[2024-12-01] MEDS ORDERED: MYCOPHENOLATE MOFETIL 250 MG CAP PO SCH (17:15)
[2024-12-01] MEDS: ONDANSETRON HCL INJ 2MG/ML 2ML 2 MG/ML VIAL IV PRN (17:16)
[2024-12-02] VITALS: BP 122/84; PULSE 86; RESP 18; TEMP 98.2; O2SAT 96
[2024-12-02 04:00] VITALS: BP 129/94; PULSE 79; RESP 18; TEMP 97.9; O2SAT 99
[2024-12-02 05:56] LABS: BASOPHILS % 0.2 % (0.0-1.0); EOSINOPHILS % 0.0 % (0.0-6.0); LYMPHOCYTES % 7.8 % (18.0-39.1); MONOCYTES % 2.9 % (4.4-11.3); NEUTROPHILS % 88.1 % (38.7-80.0); RED CELL DISTRIBUTION WIDTH 14.7 % (11.7-14.4)
[2024-12-02] MEDS: NON-FORMULARY MEDICATION PO SCH (06:13)
[2024-12-02 06:27] LABS: EST GLOMERULAR FILTRATION RATE 14.0 ML/MIN (>=60)
[2024-12-02] MEDS ORDERED: LEVOTHYROXINE SODIUM 75 MCG TAB PO SCH (07:30)
[2024-12-02 07:40] VITALS: BP 129/94; PULSE 79; RESP 18; TEMP 97.9; O2SAT 99
[2024-12-02 08:37] VITALS: BP 123/93; PULSE 76; RESP 18; TEMP 98.3; O2SAT 100
[2024-12-02] MEDS ORDERED: PREDNISONE 20 MG TAB PO SCH (09:00)
[2024-12-02] MEDS: POTASSIUM CHLORIDE 20 MEQ TAB CR PO SCH (09:34)
[2024-12-02] MEDS: MYCOPHENOLATE MOFETIL 250 MG CAP PO SCH (09:35)
[2024-12-02] MEDS: CYANOCOBALAMIN INJ 1,000 MCG/ML VIAL IM SCH (09:35)
[2024-12-02 12:14] VITALS: BP 130/87; PULSE 83; RESP 20; TEMP 98.5; O2SAT 100
== END 2024-12-02 14:10 | disposition home or self-care (01) | DRG 811 ==
LOC: ER 16:33 → ERHOLD 18:39 → MED/SURG2 22:14
PROVIDERS: ADMIT Family Medicine; ATTEND Family Medicine
PROC: 30233N1 Transfusion of Nonautologous Red Blood Cells into Peripheral Vein, Percutaneous Approach (ICD-10-PCS; 2024-11-30)
PROC: 0DB78ZX Excision of Stomach, Pylorus, Via Natural or Artificial Opening Endoscopic, Diagnostic (ICD-10-PCS; 2024-12-01)
PROC: 0DB98ZX Excision of Duodenum, Via Natural or Artificial Opening Endoscopic, Diagnostic (ICD-10-PCS; 2024-12-01)
PROC: 0DB68ZX Excision of Stomach, Via Natural or Artificial Opening Endoscopic, Diagnostic (ICD-10-PCS; principal; 2024-12-01 14:47)
DX: D62 Acute posthemorrhagic anemia (principal); K22.11 Ulcer of esophagus with bleeding; K26.4 Chronic or unspecified duodenal ulcer with hemorrhage; K25.4 Chronic or unspecified gastric ulcer with hemorrhage; N17.9 Acute kidney failure, unspecified; E87.20 Acidosis, unspecified; N12 Tubulo-interstitial nephritis, not specified as acute or chronic; I12.9 Hypertensive chronic kidney disease with stage 1 through stage 4 chronic kidney disease, or unspecified chronic kidney disease; N18.32 Chronic kidney disease, stage 3b; E89.0 Postprocedural hypothyroidism; E87.6 Hypokalemia; Z79.60 Long term (current) use of unspecified immunomodulators and immunosuppressants; Z79.52 Long term (current) use of systemic steroids; Z90.49 Acquired absence of other specified parts of digestive tract; Z90.710 Acquired absence of both cervix and uterus; Z82.49 Family history of ischemic heart disease and other diseases of the circulatory system
CPT/HCPCS: 36415; 43239; 71045; 80048; 80053; 82550; 82607; 82746; 83540; 83735; 84466; 84484; 85025; 85045; 85610; 85730; 86850; 86900; 86920; 88305; 88342; 93005; 99284; J1938; J2003; J2405; J2470; J3420; J7050; J7512; P9016